=== PATIENT | male | born 1985 | race American Indian/Alaskan Native ===

== ENCOUNTER 2016-10-26 12:29 | Emergency (ER) | payer SELFPAY ==
--- NOTE | 2016-10-26 13:25 | Emergency Department Report ---
Chief Complaint: Abdominal Pain Stated Complaint: ABD PAIN Time Seen by Provider: 10/26/16 13:22 - HPI History of Present Illness: PT c/o abd pain that started yesterday. PT states he thinks his pain started after eating some pizza. PT c/o RLQ abd pain - ROS Review of Systems: + n/v + abd pain - Exam Physical Exam: abd soft, mild abd tenderness to RLQ MSE screening note: Focused history and physical exam performed. Due to findings the following was ordered: labs ED Disposition for MSE Condition: Stable
[2016-10-26 13:27] VITALS: BP 151/115
[2016-10-26 13:58] LABS: Basophils % (Auto) 0.4 % (0.0-1.8); Eosinophils % (Auto) 0.9 % (0.0-4.3); Hematocrit 46.1 % (35.5-45.6); Hemoglobin 14.6 gm/dl (11.8-15.2); Mean Corpuscular HGB Conc 32 % (32-34); Mean Corpuscular Hemoglobin 27 pg (28-32); Mean Corpuscular Volume 86 fl (84-94); Platelet Count 261 K/mm3 (140-440); Red Blood Count 5.38 M/mm3 (3.65-5.03); Red Cell Distribution Width 15.1 % (13.2-15.2); White Blood Count 7.2 K/mm3 (4.5-11.0)
[2016-10-26 14:10] LABS: Alanine Aminotransferase 24 units/L (7-56); Albumin 4.8 g/dL (3.9-5); Albumin/Globulin Ratio 1.6 %; Alkaline Phosphatase 48 units/L (35-129); Anion Gap 19 mmol/L; Blood Urea Nitrogen 15 mg/dL (9-20); Calcium 9.5 mg/dL (8.4-10.2); Carbon Dioxide 25 mmol/L (22-30); Glucose 107 mg/dL (75-100); Lipase 31 units/L (13-60); Potassium 4.3 mmol/L (3.6-5.0); Sodium 141 mmol/L (137-145); Total Protein 7.8 g/dL (6.3-8.2)
[2016-10-26 14:55] LABS: Bacteria,Urine 1+ /HPF (Negative); Bilirubin,Urine NEG (Negative); Blood,Urine SM (Negative); Ketones,Urine NEG (Negative); Leukocyte Esterase,Urine NEG (Negative); Mucus,Urine FEW /HPF; Nitrite,Urine NEG (Negative); Urobilinogen,Urine < 2.0 mg/dL (<2.0)
--- NOTE | 2016-11-03 00:21 | ED Elopement Review ---
ED Pt Elopement review - Results review Lab results: Laboratory Tests 10/26/16 10/26/16 10/26/16 13:32 13:32 14:00 WBC 7.2 RBC 5.38 H Hgb 14.6 Hct 46.1 H MCV 86 MCH 27 L MCHC 32 RDW 15.1 Plt Count 261 Lymph % (Auto) 20.9 [place] % (Auto) 7.6 H Eos % (Auto) 0.9 Baso % (Auto) 0.4 Lymph # 1.5 [place] # 0.5 Eos # 0.1 Baso # 0.0 Seg Neutrophils % 70.2 H Seg Neutrophils # 5.0 Sodium 141 Potassium 4.3 Chloride 101.0 Carbon Dioxide 25 Anion Gap 19 BUN 15 Creatinine 1.0 Estimated GFR > 60 BUN/Creatinine Ratio 15.00 Glucose 107 H Calcium 9.5 Total Bilirubin 0.30 AST 19 ALT 24 Alkaline Phosphatase 48 Total Protein 7.8 Albumin 4.8 Albumin/Globulin Ratio 1.6 Lipase 31 Urine Color Yellow Urine Turbidity Clear Urine pH 6.0 Ur Specific [place] 1.027 Urine Protein 30 mg/dl Urine Glucose (UA) Neg Urine Ketones Neg Urine Blood Sm Urine Nitrite Neg Urine Bilirubin Neg Urine Urobilinogen < 2.0 Ur Leukocyte Esterase Neg Urine WBC (Auto) 1.0 Urine RBC (Auto) 5.0 U Epithel Cells (Auto) < 1.0 Urine Bacteria (Auto) 1+ Urine Mucus Few - Call Back decision Pt Call Back Decision: Pt to F/U with PMD
== END 2016-10-27 01:20 | disposition left against medical advice (07) ==
LOC: ED 12:29
DX: R10.9 Unspecified abdominal pain (principal); Z53.21 Procedure and treatment not carried out due to patient leaving prior to being seen by health care provider
CPT/HCPCS: 36415; 80053; 81001; 83690; 85025